=== PATIENT | female | born 1965 | race Caucasian/White ===

== ENCOUNTER 2018-04-13 02:20 | Emergency (ER) | payer MEDICARE, MEDICAID, SELFPAY ==
[2018-04-13 02:32] VITALS: BP 121/82; PULSE 91; RESP 20; TEMP 36.8; O2SAT 98
--- NOTE | 2018-04-13 02:54 | ED.GENADUL_ITS ---
Disposition Clinical Impression: Alcohol intoxication Disposition: OTHER Condition: Stable Instructions: Alcohol Intoxication (ED) Medical Decision Making - Medical Decision Making Pt here with alcohol intoxication and made vague statements about wanting to harm herself. No signs of trauma and is caox4, hypoglycemia ruled out. Feel she is medically stabled to sober at group home and have repeat mental health eval when sober, mental health agrees with plan. pt will be brought to group home by PD - Differential Diagnosis alcohol intoxication, drug abuse History of Present Illness - General Chief complaint: PsychEval Stated complaint: PSYCH EVAL Time Seen by Provider: 04/13/18 02:40 Source: patient, police Limitations: other (alcohol intoxication) - History of Present Illness Initial comments: 53 yo female comes in with [employer] police with alcohol intoxication. She apparently was found intoxicated holding a knife making vague statements of wanting to harm herself so was brought here. She denies si on my exam though is quite intoxicated and states she drank a lot today and is slurring her words and smells of alcohol. HAs no signs of trauma and is able to walk on her own though with unsteady gait. She has a breathlyzer level over 160, BGFS is 300 MD Complaint: alcohol intoxication Onset/Timin -: days(s) Improves with: none Worsens with: none - Related Data Simvastatin 40 mg PO HS 04/14/13 Budesonide/Formoterol Fumarate [Symbicort 160-4.5 Mcg Inhaler] 2 puff IH BID Insulin Glargine,Hum.rec.anlog [Lantus Solostar] 60 unit SQ DAILY 03/31/14 Albuterol [Proventil Updraft] 1 inhaler IH Q4H PRN 07/24/15 Loratadine [Claritin] 10 mg PO DAILY 01/18/17 TraZODone [Desyrel] 50 mg PO HS 01/18/17 Multivitamin 1 tab PO BID tab 01/19/17 Albuterol/Ipratropium [Duoneb Updraft] 1 applic IH Q4H PRN PRN 05/02/17 Amphet Asp/Amphet/D-Amphet [Adderall 15 MG Tablet] 15 mg PO HS 01/31/18 Amphet Asp/Amphet/D-Amphet [Adderall 30MG Tablet] 30 mg PO DAILY AM 01/31/18 Allergies Allergy/AdvReac Type Severity Reaction Status Date / Time blue dye Allergy Severe Skin Rash Unverified 04/13/18 02:34 venom-honey bee Allergy Severe Anaphylaxsi Unverified 04/13/18 02:34 s cherries Allergy Severe Anaphylaxsi Uncoded 04/13/18 02:34 s Review of Systems Constitutional: denies: fever Respiratory: denies: shortness of breath Cardiovascular: denies: chest pain Gastrointestinal: denies: abdominal pain, nausea, vomiting Neurological: denies: headache Comment: All other systems reviewed and negative Past Medical History - Past Medical History Medical history: COPD, diabetes, hypertension Surgical history: other (Cholecystectomy, knee arthroscopy, shoulder surgery, ankle surgery) - Social History Alcohol use: heavy, recent Drug use: none General Exam - General Limitations: other (alcohol intoxication) General appearance: alert, in no apparent distress - Head Head exam: Present: atraumatic - Eye Eye exam: Present: normal apperance, PERRL - ENT ENT exam: Present: mucous membranes moist - Neck Neck exam: Present: normal inspection, full ROM - Respiratory Respiratory exam: Absent: respiratory distress - Cardiovascular Cardiovascular Exam: Present: regular rate - Neurological Exam Neurological exam: Present: alert, oriented X3. Absent: motor sensory deficit - Psychiatric Psychiatric exam: Present: depressed. Absent: homicidal ideation, suicidal ideation - Skin Skin exam: Present: warm Course Vital Signs - 24 hr 04/13/18 02:32 Temperature 98.2 F Pulse 91 H Respiratory 20 Rate Blood Pressure 121/82 Pulse Oximetry 98
--- NOTE | 2018-04-13 02:59 | NUR.NOTE ---
Nursing Note: Spoke with Care Management to inform that we had another mental health patient (Call occurred around [phone])
--- NOTE | 2018-04-13 02:59 | NUR.NOTE ---
Nursing Note: Patient was highly intoxicated, did breathalyzer with [place] [employer] while in room with level of 163. Patient was unable to ambulate due to intoxication. and VARGAS decided to release pt to PD custody to sober at correctional facility and to be evaluated once sober in am.
[2018-04-13 03:06] VITALS: BP 121/82; PULSE 91; RESP 20; TEMP 36.8; O2SAT 98
--- NOTE | 2018-04-13 03:30 | PDOC.MHCN ---
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 Precipitating Factors: *Assessment of Safety SI/HI (address delusions if pertaining to the SI/HI) The client reports that she does not want to be on this earth anymore and that she has a plan to take her life but will not divulge that information. She reports that she has no deterrents from killing herself, and that she has means, but again will not divulge the information. Disposition: *Behavior: restless *Eye Contact:intermittent *Mood:depressed *Affect:restless *Appetite:poor *Sleep (trouble falling/staying asleep):reports poor Plan: The patient was brought to the [facility] until she is not longer intoxicated. [facility] will see the patient at that time.
== END 2018-04-13 02:56 | disposition other institution (70) ==
PROVIDERS: Emergency Provider Emergency Medicine; PCP Family Medicine
DX: F10.120 Alcohol abuse with intoxication, uncomplicated (principal); I10 Essential (primary) hypertension; J44.9 Chronic obstructive pulmonary disease, unspecified; E11.9 Type 2 diabetes mellitus without complications; Z79.4 Long term (current) use of insulin
CPT/HCPCS: 99283 ×2; 80053; 80320; 80329; 84443; 85025

== ENCOUNTER 2018-04-24 11:39 | Emergency (ER) | payer MEDICARE, MEDICAID, SELFPAY ==
[2018-04-24] VITALS (21 sets, daily range): BP systolic 64–166; BP diastolic 54–149; PULSE 85–113; RESP 1–28; TEMP 36.8; O2SAT 81–97
--- NOTE | 2018-04-24 12:11 | ED.GENADUL ---
Disposition Clinical Impression: Bronchitis, Hyperglycemia, Noncompliance with medication regimen Disposition: HOME Condition: Stable Instructions: Acute Bronchitis (ED), Diabetic Hyperglycemia (ED) Additional Instructions: [facility] to [facility] to have your medications filled. Take the antibiotics and steroids until finished. Follow-up with your primary care doctor for reevaluation in 1 week. Return to the emergency department any worsening or new concerning symptoms. Prescriptions: Doxycycline [Vibramycin] 100 mg PO BID 7 Days cap Prednisone 20 mg PO DIRECTED #12 tablet Medical Decision Making - Lab Data Laboratory Tests 04/24/18 04/24/18 04/24/18 12:26 12:26 12:26 WBC 8.25 RBC 4.74 Hgb 15.0 Hct 43.9 MCV 92.6 MCH 31.6 MCHC 34.2 RDW 14.4 Plt Count 229 MPV 10.3 Immature Gran % 0.6 Neutrophils % 67.3 Lymphocytes % 22.4 Monocytes % 8.2 Eosinophils % 1.0 Basophils % 0.5 Absolute Neutrophils 5.55 Absolute Lymphocytes 1.85 Absolute Monocytes 0.68 Absolute Eosinophils 0.08 Absolute Basophils 0.04 D-Dimer Sodium 134 L Potassium 4.7 Chloride 97 L Carbon Dioxide 22.8 Anion Gap 14.2 H BUN 25 H Creatinine 1.62 H Estimated GFR/1.73 m2 33.37 Glucose 354 H Calcium 9.1 Magnesium 1.4 L Total Bilirubin 0.3 0.3 Conjugated Bilirubin 0.10 AST 12 L 12 L ALT 23 20 Alkaline Phosphatase 131 H 132 H Troponin I < 0.02 Total Protein 7.6 7.6 Albumin 3.5 3.5 Urine Color Urine Clarity Urine pH Ur Specific Parshall Urine Protein Urine Ketones Urine Blood Urine Nitrite Urine Bilirubin Urine Urobilinogen Ur Leukocyte Esterase Urine RBC Urine WBC Ur Epithelial Cells Urine Crystals Urine Bacteria Urine Casts Urine Mucus Urine Other Ur Culture Indicated? Urine Glucose 04/24/18 04/24/18 12:26 12:30 WBC RBC Hgb Hct MCV MCH MCHC RDW Plt Count MPV Immature Gran % Neutrophils % Lymphocytes % Monocytes % Eosinophils % Basophils % Absolute Neutrophils Absolute Lymphocytes Absolute Monocytes Absolute Eosinophils Absolute Basophils D-Dimer 705 H Sodium Potassium Chloride Carbon Dioxide Anion Gap BUN Creatinine Estimated GFR/1.73 m2 Glucose Calcium Magnesium Total Bilirubin Conjugated Bilirubin AST ALT Alkaline Phosphatase Troponin I Total Protein Albumin Urine Color Yellow Urine Clarity Clear Urine pH 5.5 Ur Specific Parshall 1.020 Urine Protein 30 H Urine Ketones 15 H Urine Blood Negative Urine Nitrite Negative Urine Bilirubin Small H Urine Urobilinogen 0.2 Ur Leukocyte Esterase Negative Urine RBC Negative Urine WBC 0-2 Ur Epithelial Cells Few Urine Crystals Negative Urine Bacteria Few Urine Casts Negative Urine Mucus Trace Urine Other Negative Ur Culture Indicated? No Urine Glucose 500 H - Radiology Data Radiology results: report reviewed, image reviewed CXR: negative - Medical Decision Making 1210 -- 53yo F w/ h/o COPD, DM, HTN, GERD, chronic tobacco and alcohol abuse w/ nasal congestion, chronic productive cough and shortness of breath x 3 weeks. Records note that she was treated for pneumonia with Levaquin and prednisone in November 2017 and for acute bronchitis in March 2018 with Z-Don and prednisone. She received a neb treatment in route with some relief. Patient has been seen here several times recently for alcohol intoxication and suicidal ideation. She denies recent alcohol use and states she only drinks once monthly. She does admit to tobacco abuse. Patient was informed that her respiratory symptoms will be prolonged or worsen with persistent tobacco use and she understands. Heart rate 102. Oxygen saturation 94% on room air. No wheezing or rhonchi noted. No leg swelling noted. Differential diagnosis includes acute bronchitis, sinusitis, pneumonia, less likely PE. Patient also states she has been without her insulin for 2 months and her albuterol and Symbicort for 1 month due to monetary reasons. She also states her glucometer does not work and has not been checking her sugar. Accu-Chek here 336. Patient is refusing IV placement. Patient was encouraged to have IV placed for IV fluids for hypoglycemia but she is declining. The risks of and disability due to a serious pathology due to hyperglycemia such as DKA were explained and patient fully understands and still refusing. Will check labs to assess her electrolytes, renal function, troponin, and d-dimer. We will also obtain chest x-ray and give prednisone and albuterol neb treatment. 1345 -- Labs and imaging reviewed. Glucose 354. Anion gap 14. Bicarb to 2.8. Creatinine 1.62. Urine notes 15 ketones. D-dimer also slightly elevated at 705. Labs are discussed with patient she is again refusing IV. I explained to patient that although I do not think she has a pulmonary embolism, with an elevated d-dimer the next test would be a CT chest to rule out a PE and she is declining this or any other further testing for it. She is also given refusing IV and IV fluids and IV insulin for her elevated glucose. She does not appear to be in DKA. She is requesting subcu insulin. Will give 5 units regular insulin. Case discussed with care management Amie to help patient with obtaining her regular medications for her chronic medical problems. Amie d/w pt and she was offered [facility] for this and pt declined this help. Pt absconded from the ED before having her glucose rechecked and getting her prescriptions. Staff eventually found her in the waiting room and she agreed to come back for her scripts but declined recheck of glucose. She appeared nontoxic and in no acute distress. History of Present Illness - General Chief complaint: RespSymp Stated complaint: CALEX Time Seen by Provider: 04/24/18 11:50 Source: patient Mode of arrival: ambulatory Limitations: no limitations - History of Present Illness Initial comments: Patient is a 53-year-old female with a history of COPD, diabetes, with history of tobacco and alcohol abuse who presents for persistent productive cough and shortness of breath for the past 3 weeks. Patient admits to diagnosis of pneumonia and bronchitis last month. Was seen here on 03/22 for acute bronchitis and treated with Z-Don and prednisone which she finished. Patient states she also has not had the funds for her regular medication and has been without insulin for 2 months and her albuterol and Symbicort for 1 month. Patient saw her primary care doctor recently in the past few weeks but is unsure if there was any plan regarding her meds at that time. She denies known fever or chest pain. - Related Data Simvastatin 40 mg PO HS 04/14/13 Budesonide/Formoterol Fumarate [Symbicort 160-4.5 Mcg Inhaler] 2 puff IH BID 05/31/13 Insulin Glargine,Hum.rec.anlog [Lantus Solostar] 60 unit SQ DAILY 03/31/14 Albuterol [Proventil Updraft] 1 inhaler IH Q4H PRN 07/24/15 TraZODone [Desyrel] 50 mg PO HS 01/18/17 Multivitamin 1 tab PO BID tab 01/19/17 Albuterol/Ipratropium [Duoneb Updraft] 1 applic IH Q4H PRN PRN 05/02/17 Amphet Asp/Amphet/D-Amphet [Adderall 15 MG Tablet] 15 mg PO HS 01/31/18 Amphet Asp/Amphet/D-Amphet [Adderall 30MG Tablet] 30 mg PO DAILY AM 01/31/18 Doxycycline [Vibramycin] 100 mg PO BID 7 Days cap 04/24/18 Prednisone 20 mg PO DIRECTED #12 tablet 04/24/18 Allergies Allergy/AdvReac Type Severity Reaction Status Date / Time blue dye Allergy Severe Skin Rash Unverified 04/24/18 11:50 venom-honey bee Allergy Severe Anaphylaxsi Unverified 04/24/18 11:50 s cherries Allergy Severe Anaphylaxsi Uncoded 04/24/18 11:50 s Review of Systems Constitutional: denies: chills, fever Eyes: denies: eye pain ENT: denies: ear pain, throat pain, dental pain Respiratory: cough, shortness of breath Cardiovascular: denies: chest pain, dyspnea on exertion Gastrointestinal: denies: abdominal pain, nausea, vomiting Genitourinary: denies: urgency, dysuria, frequency Musculoskeletal: denies: back pain Skin: denies: rash, lesions Neurological: denies: headache, weakness, numbness Past Medical History - Past Medical History Medical history: COPD, diabetes, hypertension Surgical history: other (Cholecystectomy, knee arthroscopy, shoulder surgery, ankle surgery) - Social History Smoking status: current everyday smoker Alcohol use: heavy Drug use: none General Exam - General Limitations: no limitations General appearance: alert, in no apparent distress - Eye Eye exam: Present: EOMI - Respiratory Respiratory exam: Present: normal lung sounds bilaterally. Absent: respiratory distress, wheezes, rales, rhonchi, stridor - Cardiovascular Cardiovascular Exam: Present: regular rate, normal rhythm. Absent: bradycardia, tachycardia - GI/Abdominal GI/Abdominal exam: Present: soft, normal bowel sounds. Absent: distended, tenderness, guarding, rebound, rigid - Extremities Exam Extremities exam: Present: other (no b/l lower extremity edema) - Neurological Exam Neurological exam: Present: alert, oriented X3 - Psychiatric Psychiatric exam: Present: normal affect - Skin Skin exam: Present: warm, dry, intact Course Vital Signs - 24 hr 04/24/18 11:47 Temperature 98.2 F Pulse 108 H Respiratory 24 Rate Blood Pressure 107/96 Pulse Oximetry 95
[2018-04-24] MEDS: predniSONE 20 MG TAB 60 MG PO (12:18)
[2018-04-24] MEDS: Albuterol/Ipratropium 3 ML UPD VIAL UPD (12:19)
--- NOTE | 2018-04-24 12:21 | NUR.NOTE ---
Nursing Note: Patient refusing to have an IV placed at this time. She says i have a hard time with IV's i will drink as much water as you want me to but i don't want an IV. Patient notified of the risks.
[2018-04-24 12:34] LABS: Abs Immature Grans 0.05 k/cumm (0.0-0.09); Absolute Basophil Count 0.04 k/cumm (0.0-0.2); Absolute Eosinophil Count 0.08 k/cumm (0.0-0.7); Absolute Lymphocyte Count 1.85 k/cumm (1.2-3.4); Absolute Monocyte Count 0.68 k/cumm (0.11-0.7); Absolute Neutrophil Count 5.55 k/cumm (1.2-6.7); Basophils % 0.5; HCT 43.9 % (36.0-46.0); Immature Grans % 0.6; Lymphocytes % 22.4; Mean Corp. HGB Concentration 34.2 g/dL (32.0-36.0); Mean Corpuscular Hemoglobin 31.6 pg (27.0-33.0); Mean Corpuscular Volume 92.6 fL (80-95); Mean Platelet Volume 10.3 fL (8.0-11.0); Monocytes % 8.2; Neutrophils % 67.3; Platelet Count 229 x1000/uL (130-400); RBC 4.74 m/cumm (4.00-5.20); RBC Distribution Width 14.4 % (11.7-14.6); White Blood Cell Count 8.25 k/cumm (4.4-10.8)
--- NOTE | 2018-04-24 12:42 | DI.REPORT_ITS ---
SYMPTOMS/DIAGNOSIS: PRODUCTIVE COUGH, ? PNEUMONIA PA AND LATERAL CHEST: Comparison is made with [id number]. The heart size is normal. The lungs are well inflated and clear. The previously noted infiltrates have cleared. No new infiltrates are seen. IMPRESSION: Negative chest x-ray.
[2018-04-24 12:44] LABS: Bilirubin Small (Negative); Blood Negative (Negative); Clarity Clear; Glucose 500 mg/dL (Negative); Ketones 15 mg/dL (Negative); Leukocyte Esterase Negative (Negative); Nitrite Negative (Negative); Urobilinogen 0.2 EU/dL (Up TO 0.2); pH 5.5 (5-8)
[2018-04-24 12:53] LABS: ALT 20 U/L (12-78); AST 12 U/L (15-37); Albumin 3.5 g/dL (3.4-5.0); Alkaline Phosphatase 132 U/L (46-116); Bilirubin, Total 0.3 mg/dL (0.2-1.0); Total Protein 7.6 g/dL (6.4-8.2)
[2018-04-24 12:56] LABS: ALT 23 U/L (12-78); AST 12 U/L (15-37); Albumin 3.5 g/dL (3.4-5.0); Alkaline Phosphatase 131 U/L (46-116); Anion Gap 14.2 mmol/L (3-11); BUN 25 mg/dL (7-18); Bilirubin, Total 0.3 mg/dL (0.2-1.0); CO2 22.8 mmol/L (21.0-32.0); CREATININE 1.62 mg/dL (0.55-1.02); Calcium 9.1 mg/dL (8.5-10.1); Chloride 97 mmol/L (98-107); Estimated GFR 33.37 (mL/min/1.73m2); Glucose 354 mg/dL (70-100); Magnesium 1.4 mg/dL (1.8-2.4); Potassium 4.7 mmol/L (3.5-5.1); Sodium 134 mmol/L (136-145); Total Protein 7.6 g/dL (6.4-8.2)
[2018-04-24 12:58] LABS: Troponin I < 0.02 ng/mL (0.00-0.06)
[2018-04-24 13:09] LABS: Bacteria Few HPF (Negative); Crystals Negative HPF (Negative); Epithelial Cells Few HPF (Negative); Mucus Trace (Negative); Other Cells Negative (Negative); RBC Negative (0-2); WBC 0-2 HPF (0-5)
[2018-04-24 13:10] LABS: C & S Indicated? No; Casts Negative LPF (Negative)
[2018-04-24 13:11] LABS: D-Dimer 705 ng/mlFEU (<500)
--- NOTE | 2018-04-24 14:20 | PDOC.ERCMPRO ---
Care Management Progress Note 04/24-Met with Joanne per the request of Dr. Larson. Joanne states she is homeless, sleeping on a friend's couch. She states she does not have any minutes on her phone but will have some on Monday. Discussed medications as she had reported to Dr. Larson that she is not taking her medications because she can not afford the copay, specifically her insulin. Joanne was very angry throughout our visit stating, [place] help anyone. I am almost elderly and can not get any f.....g help. Discussed [facility] and gave brochure. Joanne stated she had already worked with [facility] and stated they don't help either. Explained to Joanne that they provide many services and can assist her with housing, medications, etc. Joanne stated she really didn't want any help. I just want to go home, I don't feel good, I will get my medication Monday when I get my check. This CM encouraged Joanne to go to [facility] from the ED in order to start the housing process. I was denied housing because I had a f.....g outstanding light bill. I really don't need any help, I just want to go home. [email or web address] [facility] brochure left with patient. Dr. Larson updated on the above.
--- NOTE | 2018-04-24 14:28 | CMPROGNOTE_ITS ---
Care Management Progress Note 04/24-Met with Joanne per the request of Dr. Larson. Joanne states she is homeless, sleeping on a friend's couch. She states she does not have any minutes on her phone but will have some on Monday. Discussed medications as she had reported to Dr. Larson that she is not taking her medications because she can not afford the copay, specifically her insulin. Joanne was very angry throughout our visit stating, [place] doesn't help anyone. I am almost elderly and can not get any f.....g help. Discussed [facility] and gave brochure. Joanne stated she had already worked with [facility] and stated they don't help either. Explained to Joanne that they provide many services and can assist her with housing, medications, etc. Joanne stated she really didn't want any help. I just want to go home, I don't feel good, I will get my medication Monday when I get my check. This CM encouraged Joanne to go to [facility] from the ED in order to start the housing process. I was denied housing because I had a f.....g outstanding light bill. I really don't need any help, I just want to go home. [employer] [facility] brochure left with patient. Dr. Larson updated on the above.
[2018-04-24] MEDS: Insulin REGULAR-Human 100 UNITS/ML UNIT SC (14:34)
--- NOTE | 2018-04-24 14:36 | NUR.NOTE ---
Nursing Note: Patient is refusing to keep the Vital sign monitor on. No i am not keeping it on i just want to go fucking home.
== END 2018-04-24 14:59 | disposition home or self-care (01) ==
PROVIDERS: Emergency Provider Physician Assistant; PCP Family Medicine
DX: J20.9 Acute bronchitis, unspecified (principal); E11.65 Type 2 diabetes mellitus with hyperglycemia; Z79.4 Long term (current) use of insulin; T48.6X6A Underdosing of antiasthmatics, initial encounter; T38.3X6A Underdosing of insulin and oral hypoglycemic [antidiabetic] drugs, initial encounter; Z91.14 Patient's other noncompliance with medication regimen; Z91.120 Patient's intentional underdosing of medication regimen due to financial hardship; J44.9 Chronic obstructive pulmonary disease, unspecified; F17.210 Nicotine dependence, cigarettes, uncomplicated; I10 Essential (primary) hypertension; Z53.29 Procedure and treatment not carried out because of patient's decision for other reasons
CPT/HCPCS: 71046; 94640; 96372; 99284; 99285; J7512; J7620; 36415; 36416; 80053; 80076; 82962; 81003; 81015; 83735; 84484; 85025; 85379

== ENCOUNTER 2018-05-25 07:37 | Emergency (ER) | payer MEDICARE, MEDICAID, SELFPAY ==
[2018-05-25 07:41] VITALS: BP 161/93; PULSE 92; RESP 18; TEMP 36.6; O2SAT 98
[2018-05-25] MEDS: Albuterol/Ipratropium 3 ML UPD VIAL UPD (08:06)
[2018-05-25] MEDS: predniSONE 20 MG TAB 60 MG PO (08:06)
--- NOTE | 2018-05-25 08:08 | W.ED.GENAD ---
Discharge Plan Discharge Details Chief Complaint: RespSymp Primary Care Provider: Ramo Willis ED Provider: Ramo Tamayo Home Meds and New Rx's Prescriptions: No Action simvastatin 40 MG tablet 40 mg PO HS RF: 0 budesonide-formoterol [Symbicort] 10.2 GM HFA aerosol inhaler 2 puff Inhalation BID RF: 0 insulin glargine [Lantus Solostar U-100 Insulin] 100 UNIT/ML insulin pen 60 unit SQ DAILY RF: 0 albuterol sulfate 3 ML solution for nebulization 1 inhaler Inhalation Q4H PRNRF: 0 trazodone 50 MG tablet 50 mg PO HS RF: 0 multivitamin [Multiple Vitamins] 1 TAB tablet 1 tab PO BID RF: 0 dextroamphetamine-amphetamine [Adderall] 30 MG tablet 30 mg PO DAILY AM RF: 0 dextroamphetamine-amphetamine [Adderall] 15 MG tablet 15 mg PO HS RF: 0 ipratropium-albuterol 3 ML solution for nebulization 1 applic Inhalation Q4H PRN PRNRF: 0 Medical Decision Making MDM Narrative Medical decision making narrative: 53-year-old female with a history of COPD, diabetes, known to me from previous emergency department evaluations. Today she is pleasant, and not intoxicated, with complaint of days of worsening cough and production of sputum with mild shortness of breath. She is afebrile with normal oxygenation and speaking in full sentences. Diagnosis includes COPD exacerbation, bronchitis, pneumonia. Patient was given oral steroids and DuoNeb updraft, she was referred for chest x-ray which did not reveal acute infiltrate. I will place her on a course of antibiotics and oral steroids. She will follow with primary care, return to the emergency department for any acute concerns. Will treat with a course of azithromycin and prednisone HPI - General Adult General Date/Time Provider Initiated Documentation: 05/25/18 07:38. Limitations to Documentation: no limitations. Information obtained by: patient. History of Present Illness 53 year old F presents to the emergency department with the chief complaint of Cough and shortness of breath, described as moderate, Quality is described as aching, and is localized to the chest. Patient reports no radiation. Patient started experiencing this day(s) No exacerbating factors reported . Patient notes other (Production of sputum). Patient did receive the following treatments prior to arrival, other (Home albuterol) HPI Narrative: 53-year-old female with COPD. She states she has had days of recurrent cough, production of green sputum, shortness of breath and increased use of inhaler to 4-6 times per day. She is most recently evaluated on April 24 at which time she had a negative chest x-ray was placed on 7 days of doxycycline as well as a small burst of steroids. She states she did have some improvement from this and has not been on antibiotics or steroids since. She has otherwise been well. She has not had any leg pain or swelling. She has had a mild aching right chest discomfort with coughing Related Data Home Medications Medication Instructions Recorded Confirmed simvastatin 40 mg PO HS 04/14/13 05/25/18 budesonide-formoterol [Symbicort] 2 puff INHALATION BID 05/31/13 05/25/18 insulin glargine [Lantus Solostar 60 unit SQ DAILY 03/31/14 05/25/18 U-100 Insulin] albuterol sulfate 1 inhaler INHALATION Q4H PRN 07/24/15 05/25/18 trazodone 50 mg PO HS 01/18/17 05/25/18 ipratropium-albuterol 1 applic INHALATION Q4H PRN PRN 05/02/17 05/25/18 dextroamphetamine-amphetamine 15 mg PO HS 01/31/18 05/25/18 [Adderall] dextroamphetamine-amphetamine 30 mg PO DAILY AM 01/31/18 05/25/18 [Adderall] Previous Rx's Medication Instructions Recorded multivitamin [Multiple Vitamins] 1 tab PO BID tab 01/19/17 Allergies Allergy/AdvReac Type Severity Reaction Status Date / Time blue dye Allergy Severe Skin Rash Unverified 05/25/18 07:46 venom-honey bee Allergy Severe Anaphylaxsi Unverified 05/25/18 07:46 s cherries Allergy Severe Anaphylaxsi Uncoded 05/25/18 07:46 s General Stated Complaint: RespSymp JANELLE: 3 Review of Systems Review of Systems 8 systems reviewed, otherwise negative [facility] Social History Smoking/Tobacco Use Status: Current every day Exam Narrative Exam Narrative: GEN: awake, alert, oriented 3. Pleasant, well groomed, interactive. HEAD: Normocephalic, atraumatic ENT: Mucous membranes moist, oropharynx unremarkable, External ear exam unremarkable EYES: PERRL, EOMI NECK: Full ROM, no SHINE, no menigismus CHEST/RESP: Nontender, no rash, diminished throughout, slight end expiratory wheeze present CARDIOVASCULAR: RRR, no murmur, rub brian. 2+ Rad pulse bilateral ABDOMEN: Soft, nontender, no mass. +Bowel sounds EXT: Full ROM, no edema, no rash Neuro: Grossly normal neurologic exam, conversant, interactive. Psych: Speech fluent, thoughts congruent, affect normal Course Vital Signs Temperature 36.6 C 05/25/18 07:41 Pulse 92 H 05/25/18 07:41 Respiratory Rate 18 05/25/18 07:41 Blood Pressure 161/93 H 05/25/18 07:41 Pulse Oximetry 98 05/25/18 07:41 Temperature 36.6 C 05/25/18 07:41 Pulse 92 H 05/25/18 07:41 Respiratory Rate 18 05/25/18 07:41 Blood Pressure 161/93 H 05/25/18 07:41 Pulse Oximetry 98 05/25/18 07:41
--- NOTE | 2018-05-25 08:40 | DI.RAD_ITS ---
SYMPTOM/DIAGNOSIS: COUGH, SOB PA AND LATERAL CHEST: Comparison is made with 04/24/18. The heart size is normal. The lungs are clear. No infiltrate or effusion is seen. IMPRESSION: Negative chest xray.
[2018-05-25 09:11] VITALS: BP 150/91; PULSE 95; RESP 16; TEMP 36.3; O2SAT 97
[2018-05-25 09:14] VITALS: BP 150/91; PULSE 95; RESP 16; TEMP 36.3; O2SAT 97
== END 2018-05-25 09:13 | disposition home or self-care (01) ==
PROVIDERS: Emergency Provider Emergency Medicine; PCP Family Medicine
DX: J06.9 Acute upper respiratory infection, unspecified (principal); J44.9 Chronic obstructive pulmonary disease, unspecified; F17.210 Nicotine dependence, cigarettes, uncomplicated; E11.9 Type 2 diabetes mellitus without complications; Z79.1 Long term (current) use of non-steroidal anti-inflammatories (NSAID); I10 Essential (primary) hypertension
CPT/HCPCS: 94640; 99283; 71046; J7512; J7620

== ENCOUNTER 2018-08-31 00:50 | Emergency (ER) | payer MEDICARE, MEDICAID, SELFPAY ==
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
[2018-08-31 01:05] VITALS: BP 108/62; PULSE 92; RESP 18; TEMP 36.8; O2SAT 98
[2018-08-31 01:13] LABS: Abs Immature Grans 0.06 k/cumm (0.0-0.09); Absolute Basophil Count 0.05 k/cumm (0.0-0.2); Absolute Eosinophil Count 0.26 k/cumm (0.0-0.7); Absolute Lymphocyte Count 2.87 k/cumm (1.2-3.4); Absolute Monocyte Count 0.85 k/cumm (0.11-0.7); Absolute Neutrophil Count 6.03 k/cumm (1.2-6.7); Basophils % 0.5; Eosinophils % 2.6; HCT 41.5 % (36.0-46.0); HGB 14.3 g/dL (12.0-15.5); Immature Grans % 0.6; Lymphocytes % 28.4; Mean Corp. HGB Concentration 34.5 g/dL (32.0-36.0); Mean Corpuscular Hemoglobin 32.3 pg (27.0-33.0); Mean Corpuscular Volume 93.7 fL (80-95); Mean Platelet Volume 9.8 fL (8.0-11.0); Monocytes % 8.4; Neutrophils % 59.5; Platelet Count 290 x1000/uL (130-400); RBC 4.43 m/cumm (4.00-5.20); RBC Distribution Width 13.1 % (11.7-14.6); White Blood Cell Count 10.12 k/cumm (4.4-10.8)
[2018-08-31 01:28] LABS: ALT 28 U/L (12-78); AST 16 U/L (15-37); Albumin 3.6 g/dL (3.4-5.0); Alkaline Phosphatase 105 U/L (46-116); BUN 26 mg/dL (7-18); Bilirubin, Total 0.1 mg/dL (0.2-1.0); CREATININE 1.53 mg/dL (0.55-1.02); Chloride 102 mmol/L (98-107); Estimated GFR 35.64 (mL/min/1.73m2); Glucose 291 mg/dL (70-100); Magnesium 1.7 mg/dL (1.8-2.4); Potassium 4.2 mmol/L (3.5-5.1); Sodium 138 mmol/L (136-145); Total Protein 7.2 g/dL (6.4-8.2)
[2018-08-31 01:30] LABS: ETHANOL BLOOD 202.7 mg/dL (<3)
[2018-08-31] MEDS: Lactated Ringers 1,000 ML 200 ML IV (01:49)
[2018-08-31] MEDS: Ondansetron 4 MG/2 ML VIAL IVP (01:49)
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
[2018-08-31] MEDS: Acetaminophen 500 MG TAB 1000 MG PO (07:14)
--- NOTE | 2018-08-31 07:20 | NUR.NOTE ---
Nursing Note: report from Lien HARDING. Pt given [employer] card for contact info. pt medicated with tylenol and d/c instructions understood. awaiting RCT.
== END 2018-08-31 08:11 | disposition home or self-care (01) ==
PROVIDERS: Emergency Provider Emergency Medicine; PCP Family Medicine
DX: S01.81XA Laceration without foreign body of other part of head, initial encounter (principal); S00.83XA Contusion of other part of head, initial encounter; S10.93XA Contusion of unspecified part of neck, initial encounter; S20.229A Contusion of unspecified back wall of thorax, initial encounter; Y04.8XXA Assault by other bodily force, initial encounter; Y07.03 Male partner, perpetrator of maltreatment and neglect; F10.129 Alcohol abuse with intoxication, unspecified; Y90.7 Blood alcohol level of 200-239 mg/100 ml; E11.9 Type 2 diabetes mellitus without complications; Z79.4 Long term (current) use of insulin; J44.9 Chronic obstructive pulmonary disease, unspecified; F17.210 Nicotine dependence, cigarettes, uncomplicated; I10 Essential (primary) hypertension
CPT/HCPCS: 12011; 36415; 71250; 80053; 80307; 96361; 96374; 99285; 70450; 70486; 72125; 74176; 80320; 81003; 83735; 85025; J2405; L0172

== ENCOUNTER 2018-09-11 09:51 | Emergency (ER) | payer MEDICARE, MEDICAID, SELFPAY ==
--- NOTE | 2018-09-11 10:14 | W.ED.GENAD ---
Discharge Plan Disposition Patient Disposition: HOME Condition: Stable Discharge Details Clinical Impression: Encounter for removal of sutures Primary Care Provider: Ramo Willis ED Provider: Xander Hagan Home Meds and New Rx's Prescriptions: No Action simvastatin 40 MG tablet 40 mg PO HS RF: 0 Symbicort 10.2 GM HFA aerosol inhaler 2 puff Inhalation BID RF: 0 albuterol sulfate 3 ML solution for nebulization 1 inhaler Inhalation Q4H PRNRF: 0 trazodone 50 MG tablet 50 mg PO HS RF: 0 multivitamin [Multiple Vitamins] 1 TAB tablet 1 tab PO BID RF: 0 dextroamphetamine-amphetamine [Adderall] 30 MG tablet 30 mg PO DAILY AM RF: 0 dextroamphetamine-amphetamine [Adderall] 15 MG tablet 15 mg PO HS RF: 0 ipratropium-albuterol 3 ML solution for nebulization 1 applic Inhalation Q4H PRN PRNRF: 0 Discharge Instructions Instructions: Stitches Removal (ED) Additional Instructions: Watch for any signs of infection and return if these occur otherwise follow-up with your primary care as needed Referrals: Ramo Willis [Primary Care Provider] - (As needed for reassessment) Medical Decision Making Patient presenting to the emergency department for chief complaint of suture removal. Patient reports that she had sutures placed approximately 11 days ago and was unable to make it in in the requested 5 days for suture removal. Patient has 3 Prolene sutures placed in her right eyebrow and these were removed without incidence. There was no dehiscence of wound after removal and no signs of infection. Patient was encouraged to continue to watch for signs of infection and return immediately if these occur. HPI General Mode of arrival: ambulatory. Date/Time Provider Initiated Documentation: 09/11/18 10:00. Limitations to Documentation: no limitations. Information obtained by: patient, RN notes reviewed and old records reviewed. History of Present Illness 53 year old F presents to the emergency department with the chief complaint of Suture removal, Quality is described as other (Denies pain), and is localized to the face. Patient notes no other symptoms.. Patient did receive the following treatments prior to arrival, none Related Data Home Medications Medication Instructions Recorded Confirmed simvastatin 40 mg PO HS 04/14/13 08/31/18 Symbicort 2 puff INHALATION BID 05/31/13 08/31/18 albuterol sulfate 1 inhaler INHALATION Q4H PRN 07/24/15 08/31/18 trazodone 50 mg PO HS 01/18/17 08/31/18 multivitamin [Multiple Vitamins] 1 tab PO BID tab 01/19/17 08/31/18 ipratropium-albuterol 1 applic INHALATION Q4H PRN PRN 05/02/17 08/31/18 dextroamphetamine-amphetamine 15 mg PO HS 01/31/18 08/31/18 [Adderall] dextroamphetamine-amphetamine 30 mg PO DAILY AM 01/31/18 08/31/18 [Adderall] Previous Rx's Medication Instructions Recorded multivitamin [Multiple Vitamins] 1 tab PO BID tab 01/19/17 Allergies Allergy/AdvReac Type Severity Reaction Status Date / Time blue dye Allergy Severe Skin Rash Unverified 08/31/18 06:55 venom-honey bee Allergy Severe Anaphylaxsi Unverified 08/31/18 06:55 s cherries Allergy Severe Anaphylaxsi Uncoded 08/31/18 06:55 s General JANELLE: 3 Review of Systems Constitutional Denies chills and Denies fever(s) Eyes Denies change in vision Integumentary/Breasts Denies rash and Denies skin swelling PFSH Medical History Polysubstance abuse (Chronic) Diabetes type 2, uncontrolled (Chronic) Asthma, persistent (Chronic) COPD (chronic obstructive pulmonary disease) (Chronic) HTN (hypertension) (Chronic) Hypercholesterolemia (Chronic) Surgical History Status post rotator cuff repair (Inactive 07/15/13) S/P cholecystectomy (Inactive) Social History Smoking/Tobacco Use Status: Current every day alcohol intake: current Exam Const General: cooperative, comfortable and no acute distress Orientation: alert, awake and oriented x3 Skin Rashes: no rashes Trauma: laceration (Right eyebrow wound healing well laceration without erythema, purulence, or)
--- NOTE | 2018-09-11 10:17 | ED.GENADUL_ITS ---
Discharge Plan Disposition Patient Disposition: HOME Condition: Stable Discharge Details Clinical Impression: Encounter for removal of sutures Primary Care Provider: Ramo Willis ED Provider: Xander Hagan Home Meds and New Rx's Prescriptions: No Action simvastatin 40 MG tablet 40 mg PO HS RF: 0 Symbicort 10.2 GM HFA aerosol inhaler 2 puff Inhalation BID RF: 0 albuterol sulfate 3 ML solution for nebulization 1 inhaler Inhalation Q4H PRNRF: 0 trazodone 50 MG tablet 50 mg PO HS RF: 0 multivitamin [Multiple Vitamins] 1 TAB tablet 1 tab PO BID RF: 0 dextroamphetamine-amphetamine [Adderall] 30 MG tablet 30 mg PO DAILY AM RF: 0 dextroamphetamine-amphetamine [Adderall] 15 MG tablet 15 mg PO HS RF: 0 ipratropium-albuterol 3 ML solution for nebulization 1 applic Inhalation Q4H PRN PRNRF: 0 Discharge Instructions Instructions: Stitches Removal (ED) Additional Instructions: Watch for any signs of infection and return if these occur otherwise follow-up with your primary care as needed Referrals: Ramo Willis [Primary Care Provider] - (As needed for reassessment) Medical Decision Making Patient presenting to the emergency department for chief complaint of suture removal. Patient reports that she had sutures placed approximately 11 days ago and was unable to make it in in the requested 5 days for suture removal. Patient has 3 Prolene sutures placed in her right eyebrow and these were removed without incidence. There was no dehiscence of wound after removal and no signs of infection. Patient was encouraged to continue to watch for signs of infection and return immediately if these occur. HPI General Mode of arrival: ambulatory . Date/Time Provider Initiated Documentation: 09/11/18 10:00 . Limitations to Documentation: no limitations . Information obtained by: patient, RN notes reviewed and old records reviewed . History of Present Illness 53 year old F presents to the emergency department with the chief complaint of Suture removal, Quality is described as other (Denies pain), and is localized to the face. Patient notes no other symptoms.. Patient did receive the following treatments prior to arrival, none Related Data Home Medications Medication Instructions Recorded Confirmed simvastatin 40 mg PO HS 04/14/13 08/31/18 Symbicort 2 puff INHALATION BID 05/31/13 08/31/18 albuterol sulfate 1 inhaler INHALATION Q4H PRN 07/24/15 08/31/18 trazodone 50 mg PO HS 01/18/17 08/31/18 multivitamin [Multiple Vitamins] 1 tab PO BID tab 01/19/17 08/31/18 ipratropium-albuterol 1 applic INHALATION Q4H PRN PRN 05/02/17 08/31/18 dextroamphetamine-amphetamine 15 mg PO HS 01/31/18 08/31/18 [Adderall] dextroamphetamine-amphetamine 30 mg PO DAILY AM 01/31/18 08/31/18 [Adderall] Previous Rx's Medication Instructions Recorded multivitamin [Multiple Vitamins] 1 tab PO BID tab 01/19/17 Allergies Allergy/AdvReac Type Severity Reaction Status Date / Time blue dye Allergy Severe Skin Rash Unverified 08/31/18 06:55 venom-honey bee Allergy Severe Anaphylaxsi Unverified 08/31/18 06:55 s cherries Allergy Severe Anaphylaxsi Uncoded 08/31/18 06:55 s General JANELLE: 3 Review of Systems Constitutional Denies chills and Denies fever(s) Eyes Denies change in vision Integumentary/Breasts Denies rash and Denies skin swelling PFSH Medical History Polysubstance abuse (Chronic) Diabetes type 2, uncontrolled (Chronic) Asthma, persistent (Chronic) COPD (chronic obstructive pulmonary disease) (Chronic) HTN (hypertension) (Chronic) Hypercholesterolemia (Chronic) Surgical History Status post rotator cuff repair (Inactive 07/15/13) S/P cholecystectomy (Inactive) Social History Smoking/Tobacco Use Status: Current every day alcohol intake: current Exam Const General: cooperative, comfortable and no acute distress Orientation: alert, awake and oriented x3 Skin Rashes: no rashes Trauma: laceration (Right eyebrow wound healing well laceration without erythema, purulence, or)
== END 2018-09-11 13:58 | disposition home or self-care (01) ==
PROVIDERS: Emergency Provider Nurse Practitioner Family; PCP Family Medicine
DX: S01.81XD Laceration without foreign body of other part of head, subsequent encounter (principal); Y04.8XXD Assault by other bodily force, subsequent encounter; E11.9 Type 2 diabetes mellitus without complications; I10 Essential (primary) hypertension; J44.9 Chronic obstructive pulmonary disease, unspecified; F17.210 Nicotine dependence, cigarettes, uncomplicated; Z48.02 Encounter for removal of sutures

== ENCOUNTER 2019-03-05 23:33 | Emergency (ER) | payer MEDICARE, MEDICAID, SELFPAY ==
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
[2019-03-05 23:36] VITALS: BP 150/91; PULSE 96; RESP 20; TEMP 36.9; O2SAT 97
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
[2019-03-06] MEDS: Ondansetron O.D.T. 4 MG TABEF (00:10)
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
== END 2019-03-06 01:02 | disposition home or self-care (01) ==
LOC: ER 03-06 01:07
PROVIDERS: Emergency Provider Emergency Medicine; PCP Family Medicine
DX: S09.90XA Unspecified injury of head, initial encounter (principal); S16.1XXA Strain of muscle, fascia and tendon at neck level, initial encounter; Y04.0XXA Assault by unarmed brawl or fight, initial encounter
CPT/HCPCS: 99284; 70450; 70486; 72125

== ENCOUNTER 2019-03-07 22:59 | Emergency (ER) | payer MEDICARE, MEDICAID, SELFPAY ==
[2019-03-07 23:00] VITALS: BP 152/94; PULSE 91; RESP 20; O2SAT 97
[2019-03-07 23:13] VITALS: BP 152/94; PULSE 97; RESP 20; TEMP 37.1; O2SAT 97
[2019-03-07 23:30] VITALS: BP 186/91; PULSE 98; RESP 20; O2SAT 97
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
[2019-03-08 00:14] VITALS: BP 128/86; PULSE 91; RESP 18; O2SAT 97
== END 2019-03-08 00:22 | disposition home or self-care (01) ==
LOC: ER 03-08 00:09
PROVIDERS: Emergency Provider Emergency Medicine; PCP Family Medicine
DX: R13.10 Dysphagia, unspecified (principal); I10 Essential (primary) hypertension; E11.9 Type 2 diabetes mellitus without complications; J44.9 Chronic obstructive pulmonary disease, unspecified
CPT/HCPCS: 93005; 99283; 93010

== ENCOUNTER 2019-05-26 07:55 | Emergency (ER) | payer MEDICARE, MEDICAID, SELFPAY ==
[2019-05-26 07:57] VITALS: BP 116/81; PULSE 101; RESP 16; TEMP 36.7; O2SAT 99
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
[2019-05-26 08:40] LABS: Bilirubin Negative (Negative); Blood Negative (Negative); Clarity Turbid (Clear); Glucose 250 mg/dL (Negative); Ketones Negative (Negative); Leukocyte Esterase Negative (Negative); Nitrite Negative (Negative); Urobilinogen 0.2 EU/dL (Up TO 0.2); pH 5.5 (5-8)
[2019-05-26 09:03] LABS: Abs Immature Grans 0.05 k/cumm (0.0-0.09); Absolute Eosinophil Count 0.36 k/cumm (0.0-0.7); Absolute Monocyte Count 0.77 k/cumm (0.11-0.7); Basophils % 0.4; Eosinophils % 3.2; HCT 40.4 % (36.0-46.0); HGB 13.6 g/dL (12.0-15.5); Immature Grans % 0.4; Lymphocytes % 21.2; Mean Corp. HGB Concentration 33.7 g/dL (32.0-36.0); Mean Corpuscular Hemoglobin 31.4 pg (27.0-33.0); Mean Corpuscular Volume 93.3 fL (80-95); Mean Platelet Volume 9.6 fL (8.0-11.0); Monocytes % 6.8; Platelet Count 387 x1000/uL (130-400); RBC 4.33 m/cumm (4.00-5.20); RBC Distribution Width 13.4 % (11.7-14.6)
--- NOTE | 2019-05-26 09:04 | DI.RAD_ITS ---
SYMPTOM/DIAGNOSIS: FATIGUE, ? PNEUMONIA PA AND LATERAL CHEST: There is no pleural effusion or pneumothorax. There are surgical clips in the right upper quadrant. Surgical device in right humeral head, IMPRESSION.: No acute process.
[2019-05-26 09:05] LABS: Absolute Basophil Count 0.05 k/cumm (0.0-0.2); Absolute Neutrophil Count 7.68 k/cumm (1.2-6.7)
--- NOTE | 2019-05-26 09:10 | DI.VRAD_ITS ---
EXAM: XR Chest, 2 Views EXAM DATE/TIME: 05/26/2019 8:30 AM CLINICAL HISTORY: 54 years old, female; Patient HX: Cough, fatigue, R/O pneumonia. TECHNIQUE: Imaging protocol: XR of the chest Views: 2 views. COMPARISON: CR XR CHEST 2V PA LATERAL 05/25/2018 8:30 AM FINDINGS: Lungs: Unremarkable. No consolidation. Pleural space: Unremarkable. No pleural effusion. No pneumothorax. Heart/Mediastinum: Unremarkable. No cardiomegaly. Upper abdomen: Surgical clips in the right upper quadrant Bones/joints: Surgical device in the right humeral head IMPRESSION: No acute process Dictated and Authenticated by: Lou Alvarado MD. Ordering:STEPHANIE Williamson MD
[2019-05-26 09:17] LABS: ALT 37 U/L (14-59); AST 24 U/L (15-37); Albumin 3.2 g/dL (3.4-5.0); Alkaline Phosphatase 95 U/L (46-116); Anion Gap 8.5 mmol/L (3-11); BUN 24 mg/dL (7-18); Bilirubin, Total 0.3 mg/dL (0.2-1.0); CO2 27.5 mmol/L (21.0-32.0); CREATININE 1.62 mg/dL (0.55-1.02); Calcium 8.9 mg/dL (8.5-10.1); Chloride 103 mmol/L (98-107); Estimated GFR 33.24 (mL/min/1.73m2); Glucose 307 mg/dL (70-100); Magnesium 1.6 mg/dL (1.8-2.4); Potassium 5.1 mmol/L (3.5-5.1); Sodium 139 mmol/L (136-145); Total Protein 6.6 g/dL (6.4-8.2); Troponin I < 0.05 ng/mL (0.00-0.06)
[2019-05-26 10:46] VITALS: BP 116/81; PULSE 101; RESP 16; TEMP 36.7; O2SAT 99
== END 2019-05-26 10:44 | disposition home or self-care (01) ==
PROVIDERS: Emergency Provider Physician Assistant; PCP Family Medicine
DX: R42 Dizziness and giddiness (principal); R53.83 Other fatigue; R73.02 Impaired glucose tolerance (oral)
CPT/HCPCS: 36415; 36416; 80053; 82962; 93005; 99285; 71046; 81003; 83735; 84484; 85025; 93010

== ENCOUNTER 2019-10-24 07:04 | Emergency (ER) | payer MEDICARE, MEDICAID, SELFPAY ==
[2019-10-24 07:04] VITALS: BP 126/87; PULSE 84; RESP 18; TEMP 36.6; O2SAT 96
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
[2019-10-24 07:34] VITALS: RESP 5
[2019-10-24] MEDS: Albuterol/Ipratropium 3 ML UPD VIAL UPD (07:34)
[2019-10-24] MEDS: Albuterol HFA 8 GM 60 PUFF INH IH (07:44)
[2019-10-24] MEDS: Inhaler, Assist Device 1 EACH MC (07:46)
[2019-10-24 08:00] VITALS: BP 122/78; PULSE 88; RESP 16; O2SAT 96
--- NOTE | 2019-10-24 09:25 | CMPROGNOTE_ITS ---
- If Service Date Differs Date of service: 10/24/19 Time of Service: 09:25 Care Management Progress Note CM meets with Joanne at the request of ED. Joanne reports she has several prescriptions ready to be picked up at the pharmacy but she cannot afford the co-pay. With Joanne's permission, CM contacts the pharmacy, [facility], to find out what the co-pays are. ROSE then contacts [employer] to inquire if the co-pays can be paid out of the Unmet Needs Funds. Edwige of [facility] advises they will take care of her co-pays so she obtain her medications.
== END 2019-10-24 08:10 | disposition home or self-care (01) ==
PROVIDERS: Emergency Provider Emergency Medicine; PCP Family Medicine
DX: J45.901 Unspecified asthma with (acute) exacerbation (principal); Z91.120 Patient's intentional underdosing of medication regimen due to financial hardship; E11.9 Type 2 diabetes mellitus without complications; F17.210 Nicotine dependence, cigarettes, uncomplicated
CPT/HCPCS: 94640; 99283; J7620

== ENCOUNTER 2019-11-20 11:27 | Outpatient (CLI) | payer MEDICARE, MEDICAID, SELFPAY ==
[2019-11-20 12:02] LABS: Abs Immature Grans 0.04 k/cumm (0.0-0.09); Absolute Basophil Count 0.03 k/cumm (0.0-0.2); Absolute Lymphocyte Count 2.98 k/cumm (1.2-3.4); Basophils % 0.2; Eosinophils % 1.6; HCT 41.6 % (36.0-46.0); Immature Grans % 0.3 %; Lymphocytes % 18.6; Mean Corp. HGB Concentration 33.7 g/dL (32.0-36.0); Mean Corpuscular Volume 89.3 fL (80-95); Monocytes % 6.9; Neutrophils % 72.4; Platelet Count 340 x1000/uL (130-400); RBC 4.66 m/cumm (4.00-5.20); RBC Distribution Width 14.4 % (11.7-14.6)
[2019-11-20 12:04] LABS: Absolute Eosinophil Count 0.26 k/cumm (0.0-0.7); Absolute Neutrophil Count 11.58 k/cumm (1.2-6.7)
[2019-11-20 12:43] LABS: Hemoglobin A1C 11.1 % (3.8-5.6)
[2019-11-20 13:18] LABS: Calculated LDL 155 mg/dL (<100); Cholesterol 230 mg/dL (<200); HDL Cholesterol 42 mg/dL (40-60); Triglyceride 169 mg/dL (<150)
== END 2019-11-20 11:47 ==
PROVIDERS: PCP Family Medicine; Visit Provider Family Medicine
DX: E11.65 Type 2 diabetes mellitus with hyperglycemia (principal)
CPT/HCPCS: 36415; 80061; 83036; 85025